=== PATIENT | male | born 1995 ===

== ENCOUNTER 2024-04-15 20:33 | Emergency (ER) | payer OTHER ==
[~2024-04-15] VITALS: Ht 188 cm; Wt 108.9 kg
[2024-04-15 20:38] VITALS: BP 175/106
[2024-04-15] MEDS ORDERED: HYDROcodone 5-APAP 325 TAB PO ONE (21:00)
[2024-04-15] MEDS ORDERED: Acetaminophen 325 MG TABLET PO ONE (21:00)
[2024-04-15] MEDS ORDERED: RX Prepack 6 Tabs Oxycodone 5mg UD ONE (21:30)
== END 2024-04-15 22:00 | disposition home or self-care (01) ==
LOC: ER 20:33
DX: T23.252A Burn of second degree of left palm, initial encounter (principal); T23.222A Burn of second degree of single left finger (nail) except thumb, initial encounter; T31.0 Burns involving less than 10% of body surface; X08.8XXA Exposure to other specified smoke, fire and flames, initial encounter
CPT/HCPCS: 64450; 99283-25; A9270